=== PATIENT | female | born 1935 | race African-American/Black ===

== ENCOUNTER 2019-04-19 21:49 | Inpatient (IN) | payer MEDICARE, MEDICAID ==
[~2019-04-19] VITALS: Ht 165.1 cm; Wt 65.8 kg
[~2019-04-19 21:49] MED LIST: ASPI-1393 PO
[2019-04-20 01:36] LABS: BASOPHILS % 0.9 % (0.0-2.0); HEMATOCRIT. 41.6 % (36.0-48.0); HEMOGLOBIN. 13.1 g/dL (12.0-16.0); LYMPHOCYTES % 25.5 % (20.0-50.0); MEAN CORPUSCULAR HEMOGLOBIN 27.6 pg (28.0-32.0); MEAN CORPUSCULAR VOLUME 87.5 fL (81.0-99.0); MEAN PLATELET VOLUME 8.8 fl (7.4-10.4); MONOCYTES % 6.8 % (2.0-8.0); NEUTROPHILS % 64.8 % (40.0-76.0); PLATELET 227 x1000/uL (130-400); RED BLOOD CELL COUNT 4.75 mill/uL (4.2-5.4); RED CELL DISTRIBUTION WIDTH 13.8 % (11.6-14.6)
[2019-04-20 01:42] LABS: CHLORIDE 107 mEq/L (98-107)
[2019-04-20 05:23] LABS: CLARITY URINE CLEAR (CLEAR); COLOR URINE YELLOW (YELLOW); KETONES URINE TRACE (NEGATIVE); LEUKOCYTE ESTERASE URINE NEGATIVE (NEGATIVE); NITRITE URINE NEGATIVE (NEGATIVE); OCCULT BLOOD URINE NEGATIVE (NEGATIVE); PH URINE 7.5 (4.5-8.0); PROTEIN URINE NEGATIVE (NEGATIVE); SPECIFIC GRAVITY URINE 1.011 (1.005-1.030)
[2019-04-20] MEDS ORDERED: ASPIRIN 325MG TABLET PO ONE (06:15)
[2019-04-20] MEDS ORDERED: IPRATROPIUM/ALBUTEROL 0.5-3(2.5)MG/3ML NEB NEB PRN (08:45)
[2019-04-20] MEDS ORDERED: ONDANSETRON HCL 4MG/2ML INJ IV PRN (08:45)
[2019-04-20] MEDS ORDERED: MAGNESIUM/ALUMINUM HYDROXIDE/SIMETHICONE 30ML UDC PO PRN (08:45)
[2019-04-20] MEDS ORDERED: DOCUSATE SODIUM 100MG CAPSULE PO PRN (08:45)
[2019-04-20] MEDS ORDERED: CLONIDINE 0.1MG TABLET PO PRN (08:45)
[2019-04-20] MEDS ORDERED: ACETAMINOPHEN 325MG TABLET PO PRN (08:45)
[2019-04-20] MEDS ORDERED: ENOXAPARIN 40MG/0.4ML SYR SUBCUT NR (09:15)
[2019-04-20 10:20] VITALS: BP 121/64
[2019-04-20] MEDS ORDERED: POTA10CA42 PO (12:18)
[2019-04-20] MEDS ORDERED: AMLO10TA4 PO (12:18)
[2019-04-20] MEDS ORDERED: HYDR25TA PO (12:18)
[2019-04-20] MEDS ORDERED: POTASSIUM CHLORIDE 20MEQ TABLET SR PO NR (12:45)
[2019-04-20 15:54] VITALS: BP 123/67
[2019-04-20 20:00] VITALS: BP 129/75
[2019-04-21] VITALS: BP 129/81
[2019-04-21 04:00] VITALS: BP 147/89
[2019-04-21 06:22] LABS: BASOPHILS % 0.8 % (0.0-2.0); EOSINOPHILS % 4.4 % (0.0-5.0); HEMATOCRIT. 36.4 % (36.0-48.0); HEMOGLOBIN. 11.7 g/dL (12.0-16.0); LYMPHOCYTES % 42.7 % (20.0-50.0); MEAN CORPUSCULAR HEMOGLOBIN 27.8 pg (28.0-32.0); MEAN CORPUSCULAR VOLUME 86.3 fL (81.0-99.0); MEAN PLATELET VOLUME 9.5 fl (7.4-10.4); MONOCYTES % 9.7 % (2.0-8.0); NEUTROPHILS % 42.4 % (40.0-76.0); PLATELET 213 x1000/uL (130-400); RED BLOOD CELL COUNT 4.21 mill/uL (4.2-5.4); RED CELL DISTRIBUTION WIDTH 14.1 % (11.6-14.6)
[2019-04-21 06:53] LABS: CHLORIDE 109 mEq/L (98-107)
[2019-04-21 06:58] LABS: PHOSPHORUS 3.2 mg/dL (2.5-4.9)
[2019-04-21 06:59] LABS: LDL CHOLESTEROL 83 mg/dL (5-100)
[2019-04-21 07:01] LABS: HDL CHOLESTEROL 47 mg/dL (40-59)
[2019-04-21 08:00] VITALS: BP 135/70
[2019-04-21] MEDS: ENOXAPARIN 40MG/0.4ML SYR SUBCUT SCH (10:12)
[2019-04-21 11:53] VITALS: BP 119/69
[2019-04-21] MEDS: HYDROCHLOROTHIAZIDE 25MG TABLET PO SCH (13:14)
[2019-04-21] MEDS: AMLODIPINE 10MG TABLET PO SCH (13:14)
[2019-04-21 16:00] VITALS: BP 127/72
[2019-04-21 17:06] LABS: T4 FREE 0.98 ng/dL (0.76-1.46)
[2019-04-21 20:58] VITALS: BP 157/68
[2019-04-22 04:00] VITALS: BP 128/72
[2019-04-22 07:51] LABS: CHLORIDE 105 mEq/L (98-107)
[2019-04-22 08:00] VITALS: BP 139/77
[2019-04-22 08:05] LABS: BASOPHILS % 0.8 % (0.0-2.0); EOSINOPHILS % 3.6 % (0.0-5.0); HEMOGLOBIN. 12.3 g/dL (12.0-16.0); LYMPHOCYTES % 37.4 % (20.0-50.0); MEAN CORPUSCULAR HEMOGLOBIN 27.9 pg (28.0-32.0); MEAN CORPUSCULAR VOLUME 86.1 fL (81.0-99.0); MEAN PLATELET VOLUME 9.4 fl (7.4-10.4); MONOCYTES % 9.2 % (2.0-8.0); PLATELET 227 x1000/uL (130-400); RED BLOOD CELL COUNT 4.41 mill/uL (4.2-5.4); RED CELL DISTRIBUTION WIDTH 13.8 % (11.6-14.6)
[2019-04-22] MEDS: ENOXAPARIN 40MG/0.4ML SYR SUBCUT SCH (09:18)
[2019-04-22] MEDS: HYDROCHLOROTHIAZIDE 25MG TABLET PO SCH (09:19)
[2019-04-22] MEDS: AMLODIPINE 10MG TABLET PO SCH (09:19)
[2019-04-22 12:00] VITALS: BP 125/81
[2019-04-22] MEDS ORDERED: POTASSIUM CHLORIDE 20MEQ TABLET SR PO NR (13:45)
== END 2019-04-22 15:20 | disposition home or self-care (01) | DRG 206 ==
LOC: ER 21:49 → ENRESERV 04-20 09:13 → 6WST 04-20 10:36
PROVIDERS: ADMIT Internal Medicine; ATTEND Internal Medicine
DX: M94.0 Chondrocostal junction syndrome [Tietze] (principal); I10 Essential (primary) hypertension; E87.6 Hypokalemia; E55.9 Vitamin D deficiency, unspecified; E78.5 Hyperlipidemia, unspecified; M19.90 Unspecified osteoarthritis, unspecified site; Z79.82 Long term (current) use of aspirin; Z88.6 Allergy status to analgesic agent
CPT/HCPCS: 36415; 71045; 80048; 80061; 81003; 83735; 83880; 84100; 84439; 84443; 84484; 93005; 93306; 93970; 96372; 97162; 99285; J1650

== ENCOUNTER 2023-10-19 14:54 | Emergency (ER) | payer MEDICARE, MEDICAID ==
[~2023-10-19] VITALS: Ht 167.6 cm; Wt 75.0 kg
[~2023-10-19 14:54] MED LIST changes: +AMLO10TA4 PO; -ASPI-1393 PO; +ASPI-1497 PO; +HYDR25TA PO; +POTA10CA83 PO
[2023-10-19 15:15] VITALS: O2SAT 97
[2023-10-19 16:36] VITALS: BP 168/71; PULSE 88; RESP 22; TEMP 98.5
== END 2023-10-19 18:05 | disposition home or self-care (01) ==
LOC: ER 15:08
DX: I10 Essential (primary) hypertension (principal); Z88.5 Allergy status to narcotic agent
CPT/HCPCS: 99281

== ENCOUNTER 2025-05-11 12:42 | Emergency (ER) | payer MEDICARE, MEDICAID ==
[~2025-05-11] VITALS: Ht 157.5 cm; Wt 55.0 kg
[~2025-05-11 12:42] MED LIST changes: +AMLO-905 PO; -AMLO10TA4 PO; -HYDR25TA PO; +HYDR50TA39 PO; +LOSA50TA41 PO; -POTA10CA83 PO; +POTA10CA93 PO
[2025-05-11 12:57] VITALS: O2SAT 98
[2025-05-11 13:38] LABS: BASOPHILS % 0.7 % (0.0-2.0); EOSINOPHILS % 1.6 % (0.0-5.0); HEMATOCRIT. 39.2 % (36.0-48.0); HEMOGLOBIN. 12.3 g/dL (12.0-16.0); LYMPHOCYTES % 21.8 % (20.0-50.0); MEAN PLATELET VOLUME 9.2 fl (7.4-10.4); MONOCYTES % 8.0 % (2.0-8.0); NEUTROPHILS % 67.9 % (40.0-76.0); PLATELET 215 x1000/uL (130-400); RED BLOOD CELL COUNT 4.49 mill/uL (4.2-5.4); RED CELL DISTRIBUTION WIDTH 13.9 % (11.6-14.6)
[2025-05-11 13:44] LABS: CREATININE 0.8 mg/dL (0.6-1.0)
[2025-05-11 13:45] LABS: UREA NITROGEN BLOOD 16 mg/dL (9-23)
[2025-05-11] MEDS: SODIUM CHLORIDE 0.9% 1,000 ML IV ONE (14:50)
[2025-05-11] MEDS: DIPHENHYDRAMINE 50MG/ML VIAL IV ONE (14:50)
[2025-05-11] MEDS: METOCLOPRAMIDE HCL 10MG/2ML VIAL IV ONE (14:51)
[2025-05-11] MEDS: DICLOFENAC SODIUM 1% GEL 50GM TOP SCH (15:48)
[2025-05-11] MEDS: ACETAMINOPHEN 325MG TABLET PO ONE ×2 (15:48→15:49)
[2025-05-11 16:59] VITALS: BP 209/110; PULSE 76; RESP 18; TEMP 36.9; O2SAT 98
== END 2025-05-11 16:59 | disposition home or self-care (01) ==
LOC: ER 12:42
DX: M79.89 Other specified soft tissue disorders (principal); M79.604 Pain in right leg; M79.605 Pain in left leg; I10 Essential (primary) hypertension; M19.90 Unspecified osteoarthritis, unspecified site; Z98.890 Other specified postprocedural states; Z79.899 Other long term (current) drug therapy; Z79.82 Long term (current) use of aspirin; Z88.5 Allergy status to narcotic agent
CPT/HCPCS: 99285; 71045; 80048; 83880; 85025; 36415; J1200; J2765; J7030